=== PATIENT | male | born 1990 | race Caucasian/White ===

== ENCOUNTER → 2016-08-05 | Outpatient (CLI) | payer OTHER ==
--- NOTE | 2016-08-05 11:57 | DIAGNOSTIC IMAGING REPORT ---
PROCEDURE: MR UPPER EXTREMITY W/O CONT-LT INDICATION: LEFT WRIST INJURY TECHNIQUE: PD and FAT-SAT PD, axial, and coronal-oblique images. PD and STIR sagittal-oblique images. COMPARISON: Left wrist x-ray from [facility] 07/14/2016 FINDINGS: There is a transverse fracture through the waist of the scaphoid with adjacent bone marrow edema. No evidence at this time of osteonecrosis. No additional fractures. Normal joint spaces. Normal triangular fibrocartilage. Normal flexor and extensor tendons. IMPRESSION: 1. Nondisplaced transverse fracture through the waist of the scaphoid
--- NOTE | 2016-08-05 11:57 | DIAGNOSTIC IMAGING REPORT ---
PROCEDURE: MR UPPER EXTREMITY W/O CONT-LT INDICATION: LEFT WRIST INJURY TECHNIQUE: PD and FAT-SAT PD, axial, and coronal-oblique images. PD and STIR sagittal-oblique images. COMPARISON: Left wrist x-ray from [facility] 07/14/2016 FINDINGS: There is a transverse fracture through the waist of the scaphoid with adjacent bone marrow edema. No evidence at this time of osteonecrosis. No additional fractures. Normal joint spaces. Normal triangular fibrocartilage. Normal flexor and extensor tendons. IMPRESSION: 1. Nondisplaced transverse fracture through the waist of the scaphoid
== END ==
LOC: MRI SRH 09:27
DX: S62.035A Nondisplaced fracture of proximal third of navicular [scaphoid] bone of left wrist, initial encounter for closed fracture (principal)

== ENCOUNTER 2016-10-10 14:58 | Outpatient (CLI) | payer OTHER ==
--- NOTE | 2016-10-10 16:25 | DIAGNOSTIC IMAGING REPORT ---
PROCEDURE: MR UPPER EXTREMITY W/O CONT-LT INDICATION: SCAPHOID FX, follow-up. TECHNIQUE: PD, gradient, and STIR coronal images. PD, FAT-SAT PD, and STIR axial images. PD and FAT-SAT PD sagittal images. COMPARISON: Left wrist MRI 08/05/2016. FINDINGS: There is a healing fracture through the scaphoid waist with normal alignment and positioning. There is decreasing bone marrow edema and no evidence of osteonecrosis. No additional fractures or osseous abnormalities. Normal joint spaces. Normal extensor and flexor tendons. Normal triangular fibrocartilage. IMPRESSION: 1. Healing left scaphoid fracture with decreasing bone marrow edema and no evidence of osteonecrosis
== END 2016-10-10 23:00 ==
LOC: MRI SRH 14:58
DX: S62.002D Unspecified fracture of navicular [scaphoid] bone of left wrist, subsequent encounter for fracture with routine healing (principal)